=== PATIENT | female | born 1965 | race African-American/Black ===

== ENCOUNTER → 2016-11-24 | Outpatient (CLI) | payer OTHER ==
--- NOTE | ~2016-11-24 | MY11 ---
[facility] A Service of [facility] RADIOLOGY TEXT RESULTS PATIENT: JESI CHAMBERS LOCATION: [facility] : 61 UNIT #: [id number] AGE: [address]: Layla Bradshaw MD SEX: F ORDER DR: [id number] [facility] [address] [place], [place] [address] [id number] O MR#: [id number] Acc #: [id number] NAME: JESI CHAMBERS : 1965 SEX: F STUDY DATE/TIME: 11/24/2016 11:34 UNIT: [facility] ROOM: STUDY DESCRIPTION: MY Mammogram Screening Dig Jesus Attending Physician: Layla Bradshaw M.D. Referring Physician: Layla Bradshaw M.D. Ordering Physician: Layla Bradshaw M.D. Primary Care Physician: Layla Bradshaw M.D. MEDICAL IMAGING REPORT This report is preliminary unless electronic signature is present EXAM Digital screening mammogram 11/24/2016 HISTORY 51-year-old woman. Positive family history, mother age 72. Previous bilateral reduction mammoplasties. Annual screen. COMPARISON 10/25/2009, 12/16/2010, 01/07/2015. FINDINGS Digital imaging of each breast was completed utilizing a two-view examination of each breast in craniocaudal and mediolateral-oblique projections. Review and interpretation of digital mammograms include a second review in conjunction with FDA-approved CAD device. There is a normal parenchymal presentation bilaterally consistent with the patient's age. There are no breast masses imaged and no parenchymal asymmetry is visualized. There are no suspicious microcalcifications and I see no focal architectural disturbance. Breast parenchyma is fatty-replaced. IMPRESSION Negative screening digital mammogram. One-year follow up recommended. Breast parenchyma is fatty-replaced. Patients over the age of 40 are entered into a reminder system with target due date for the next mammogram. A result letter will also be sent to the patient. BIRADS: 1 Negative [facility] A Service of [facility] RADIOLOGY TEXT RESULTS PATIENT: JESI CHAMBERS LOCATION: [facility] : 61 UNIT #: [id number] AGE: [address]: Layla Bradshaw MD SEX: F ORDER DR: Dictated by... Iam Leal M.D. THIS IS AN ELECTRONICALLY VERIFIED REPORT Ima Leal M.D. at 11/24/2016 2:01 PM MOIZ/davida TD: 11/24/2016 13:33 JOB #: [id number] MEDICAL IMAGING REPORT Page 1 of 1 COPY
== END | disposition home or self-care (01) ==
LOC: CWCC 11:26
DX: Z12.31 Encounter for screening mammogram for malignant neoplasm of breast (principal); Z80.3 Family history of malignant neoplasm of breast; R92.8 Other abnormal and inconclusive findings on diagnostic imaging of breast
CPT/HCPCS: G0202

== ENCOUNTER 2017-02-27 01:50 | Emergency (ER) | payer OTHER ==
[~2017-02-27] VITALS: Ht 162.6 cm; Wt 79.8 kg
[2017-02-27 03:40] LABS: URINE SOURCE CLEAN CATCH
[2017-02-27 03:45] LABS: URINE APPEARANCE CLEAR; URINE BILIRUBIN NEG (NEG); URINE BLOOD NEG (NEG); URINE COLOR YELLOW; URINE GLUCOSE NEG (NEG); URINE KETONE NEG (NEG); URINE LEUKOCYTE ESTERASE NEG (NEG); URINE NITRATE NEG (NEG); URINE PROTEIN NEG (NEG); URINE SPECIFIC GRAVITY 1.026 (1.003-1.035); URINE UROBILINOGEN 0.2 MG/DL (NEG)
[2017-02-27 04:41] LABS: CULTURE INDICATED? NO
== END 2017-02-27 04:51 | disposition home or self-care (01) ==
LOC: CED 01:50
PROVIDERS: Physician Assistant
DX: M54.5 Low back pain (principal); I10 Essential (primary) hypertension; Z90.710 Acquired absence of both cervix and uterus
CPT/HCPCS: 81003; 99283